=== PATIENT | male | born 1950 | race Caucasian/White ===

== ENCOUNTER → 2024-09-27 | Outpatient (CLI) | payer OTHER, SELFPAY ==
--- NOTE | 2024-09-27 08:24 | EKG12_ITS ---
Test Reason : A-FIB WB Blood Pressure : */* mmHG Vent. Rate : 75 BPM Atrial Rate : 75 BPM P-R Int : 180 ms QRS Dur : 82 ms QT Int : 402 ms P-R-T Axes : 80 17 44 degrees QTcB Int : 448 ms Normal sinus rhythm Normal ECG Confirmed by Darvin Lewis ([id number]), desk editor JOSÉ HULL ([id number]) on 09/27/2024 11:03:13 AM Referred By: Ilya Feldman Confirmed By: Darvin Lewis
== END | disposition home or self-care (01) ==
PROVIDERS: PCP Chiropractor; Referring Provider Chiropractor; Visit Provider Chiropractor
DX: I48.91 Unspecified atrial fibrillation (principal)
CPT/HCPCS: 93005

== ENCOUNTER → 2024-10-28 | Outpatient (CLI) | payer OTHER, SELFPAY | END | disposition home or self-care (01) | LOC: CVS 13:56 | PROVIDERS: PCP Chiropractor; Referring Provider Chiropractor; Visit Provider Chiropractor | DX: I48.91 Unspecified atrial fibrillation (principal); I77.810 Thoracic aortic ectasia | CPT/HCPCS: 93306; Q9957; A4216; C8929 ==